=== PATIENT | female | born 1950 | race Caucasian/White ===

== ENCOUNTER 2020-07-15 08:45 | Day surgery (SDC) | payer OTHER ==
[~2020-07-15 08:45] MED LIST: CLONAZEPAM0.5 MG PO; COZAAR50 MG PO; GABAPENTIN800 MG PO; IRBESARTAN-HCT1 EACH PO; LAMICTAL150 M1 PO; METFORMIN HCL500 MG PO; NEURONTIN600 MG PO; PANADOL EXTRA500 MG PO; POLY119PG PO; SIMVASTATIN10 MG PO; TRAMADOL HCL50 MG PO; TRENTAL PO; TYLENOL EXTRA500 MG PO; VITAMIN D31000 UNIT PO
[2020-07-15] MEDS ORDERED: MIRALAX17 GM PO (12:49)
[2020-07-15] MEDS ORDERED: TYLENOL ARTHRI650 MG PO (12:49)
[2020-07-15] MEDS ORDERED: ULTRAM50 MG PO (12:49)
== END 2020-07-15 19:06 | disposition home or self-care (01) ==
LOC: CIR.AMB 08:45
PROVIDERS: ATTEND Surgery
DX: M79.81 Nontraumatic hematoma of soft tissue (principal); Z20.822 Contact with and (suspected) exposure to COVID-19